=== PATIENT | female | born 2000 | race Caucasian/White ===

== ENCOUNTER → 2022-09-12 | Outpatient (CLI) | payer BC ==
--- NOTE | 2022-09-12 12:29 | US ---
EXAMINATION TYPE: US abdomen complete DATE OF EXAM: 09/12/2022 COMPARISON: NONE CLINICAL INDICATION: Female, 22 years old with history of R10.9 ABD PAIN; Abdominal pain x a couple m onths after eating certain foods. TECHNIQUE: Multiple sonographic images of the abdomen are obtained. FINDINGS: EXAM MEASUREMENTS: Liver Length: 13.8 cm Gallbladder Wall: 0.18 cm CBD: 0.52 cm Spleen: 8.9 cm Right Kidney: 10.9 x 4.4 x 3.7 cm Left Kidney: 9.8 x 4.5 x 4.8 cm INSURANCE ACCOUNT REPRESENTATIVE NOTES: Limited due to overlying bowel gas. Pancreas: Suboptimal visualization of the pancreatic head and tail due to shadowing from bowel gas. Liver: No abnormalities seen. Gallbladder: Appears anechoic. Evidence for sonographic Hughes's sign: No CBD: Portions seen appear wnl Spleen: Appears wnl Right Kidney: No hydronephrosis or masses seen Left Kidney: No hydronephrosis or masses seen Upper IVC: Appears wnl Abd Aorta: Portions seen appear wnl. Iliacs were obscured. IMPRESSION: Suboptimal visualization of the pancreas. Otherwise, unremarkable sonographic examination of the abdo men.
== END | disposition home or self-care (01) ==
LOC: RADUSWWP 07:31
PROVIDERS: ATTEND Internal Medicine Geriatric Medicine
DX: R10.9 Unspecified abdominal pain (principal)
CPT/HCPCS: 76700

== ENCOUNTER 2023-08-29 14:15 | Emergency (ER) | payer BC, OTHER ==
--- NOTE | 2023-08-29 14:35 | ED ---
Arrhythmia/Palpitations HPI - General Source: patient, RN notes reviewed Mode of arrival: ambulatory Limitations: no limitations <Cristiano Farley - Last Filed: 08/29/23 14:33> - General Source: patient, RN notes reviewed <Charu Shane - Last Filed: 08/29/23 16:34> - General Chief Complaint: Arrhythmia/Palpitations Stated Complaint: irregular HR, Shaky/Nausea Time Seen by Provider: 08/29/23 14:20 - History of Present Illness Initial Comments: Quick [id number] female presents emergency department chief complaint of palpitations. Patient states she was active at the time states her heart rate shot up to over 130 she states shortly after it dropped down to 50s she became very lightheaded, sweaty, clammy feeling she states she has had a few episodes like this recently. She denies anything new she states when she was younger she was told her thyroid had some issues but unsure if it was over or underactive she states she is not on medications she denies any fevers no cough or cold symptoms denies any drug use. (Cristiano Farley) Patient is a 23-year-old female presenting with palpitations. States she was active at work when her [employer] ring notified her that her heart rate was increased to 130, and shortly after dropped in the 50s. She was experiencing palpitations and lightheadedness when this occurred. States she has had frequent episodes of this over the last several weeks and has upcoming appointment with her primary care physician. She states she has a history of thyroid issues however is not unsure if it is over or under reactive. She denies , drug use, vomiting. States she drinks 1 cup of coffee daily. Denies URI symptoms or chest pain. Denies history of cardiac issues. (Charu Shane) - Related Data Home Medications Medication Instructions Recorded Confirmed No Known Home Medications 08/29/23 08/29/23 Allergies Allergy/AdvReac Type Severity Reaction Status Date / Time No Known Allergies Allergy Verified 08/29/23 15:35 Review of Systems ROS Other: All systems not noted in ROS Statement are negative. <Cristiano Farley - Last Filed: 08/29/23 14:33> ROS Other: All systems not noted in ROS Statement are negative. <Charu Shane - Last Filed: 08/29/23 16:34> ROS Statement: Those systems with pertinent positive or pertinent negative responses have been documented in the HPI. Past Medical History Past Medical History: Asthma, Thyroid Disorder History of Any Multi-Drug Resistant Organisms: None Reported Past Surgical History: No Surgical Hx Reported Past Psychological History: No Psychological Hx Reported Smoking Status: Never smoker Past Alcohol Use History: Occasional Past Drug Use History: None Reported <Cristiano Farley - Last Filed: 08/29/23 14:33> General Exam Limitations: no limitations <Cristiano Farley - Last Filed: 08/29/23 14:33> ENT exam: Present: normal exam, mucous membranes moist Respiratory exam: Present: normal lung sounds bilaterally. Absent: respiratory distress, wheezes, rales, rhonchi, stridor Cardiovascular Exam: Present: regular rate, normal rhythm, normal heart sounds. Absent: systolic murmur, diastolic murmur, rubs, gallop, clicks GI/Abdominal exam: Present: soft, normal bowel sounds. Absent: distended, tenderness, guarding, rebound, rigid Extremities exam: Present: normal inspection, full ROM, normal capillary refill. Absent: tenderness, pedal edema, joint swelling, calf tenderness Psychiatric exam: Present: normal affect, normal mood Skin exam: Present: warm, dry, intact, normal color. Absent: rash <Charu Shane - Last Filed: 08/29/23 16:34> - General Exam Comments Initial Comments: Visual Physical Exam Vital signs reviewed General: Well-appearing, nontoxic, no acute distress. Head: Normocephalic, atraumatic Eyes: PERRLA, EOMI ENT: Airway patent Chest: Nonlabored breathing Skin: No visual rash, normal skin tone Neuro: Alert and oriented 3 Musculoskeletal: No gross abnormalities (Cristiano Farley) Course Vital Signs 08/29/23 14:17 Temperature 98.4 F Pulse Rate 100 Respiratory 20 Rate Blood Pressure 119/80 O2 Sat by Pulse 100 Oximetry EKG Findings - EKG Comments: EKG Findings:: Sinus rhythm with no ST changes. Vent rate 98 bpm, AZ interval 142, QRS duration 89, QT/QTc 329/384. <Charu Shane - Last Filed: 08/29/23 16:34> Medical Decision Making <Cristiano Farley - Last Filed: 08/29/23 14:33> - Lab Data Result diagrams: 08/29/23 14:45 08/29/23 14:45 <Charu Shane - Last Filed: 08/29/23 16:34> - Medical Decision Making I completed the quick note portion of this chart signed Cristiano Farley PA-C (Cristiano Farley) Was pt. sent in by a medical professional or institution (, PA, CORRESPONDENCE COORDINATOR, urgent care, hospital, or usp...) When possible be specific @ -No Did you speak to anyone other than the patient for history (EMS, parent, family, police, friend...)? What history was obtained from this source @ -No Did you review nursing and triage notes (agree or disagree)? Why? @ -I reviewed and agree with nursing and triage notes Were old charts reviewed (outside hosp., previous admission, EMS record, old EKG, old radiological studies, urgent care reports/EKG's, usp records)? Report findings @ -No old charts were reviewed Differential Diagnosis (chest pain, altered mental status, abdominal pain women, abdominal pain men, vaginal bleeding, weakness, fever, dyspnea, syncope, headache, dizziness, GI bleed, back pain, seizure, CVA, palpatations, mental health, musculoskeletal)? @ -Differential Palpitations Ventricular arrhythmias, atrial arrhythmias, myocardial infarction, anemia, thyrotoxicosis, electrolyte imbalance, hypokalemia, pulmonary embolism, pulmonary disease, drugs, alcohol, anxiety, stress.... This is not meant to be an all-inclusive list. EKG interpreted by me (3pts min.). @ -Normal sinus rhythm with no ST changes X-rays interpreted by me (1pt min.). @ -None done CT interpreted by me (1pt min.). @ -None done U/S interpreted by me (1pt. min.). @ -None done What testing was considered but not performed or refused? (CT, X-rays, U/S, labs)? Why? @ -None What meds were considered but not given or refused? Why? @ -None Did you discuss the management of the patient with other professionals (professionals i.e. , GENE, CORRESPONDENCE COORDINATOR, lab, RT, psych nurse, social and political studies professor, nail specialist, teacher, ground intelligence officer, nurse case manager)? Give summary @ -No Was smoking cessation discussed for >3mins.? @ -No Was critical care preformed (if so, how long)? @ -No Were there social determinants of health that impacted care today? How? (Homeles sness, low income, unemployed, alcoholism, drug addiction, transportation, low edu. Level, literacy, decrease access to med. care, usp, rehab)? @ -No Was there de-escalation of care discussed even if they declined (Discuss DNR or withdrawal of care, Hospice)? DNR status @ -No What co-morbidities impacted this encounter? (DM, HTN, Smoking, COPD, CAD, Cancer, CVA, ARF, Chemo, Hep., AIDS, mental health diagnosis, sleep apnea, morbid obesity)? @ -None Was patient admitted / discharged? Hospital course, mention meds given and route, prescriptions, significant lab abnormalities, going to OR and other pertinent info. @ -Patient was discharged. Patient was seen and examined for palpitations. Vitals and physical examination were unremarkable. Lab work revealed mild dehydration but was otherwise unremarkable. IV fluids were given. Advised patient that there are no signs of emergent illness present today on examination, advised to follow-up with PCP for further evaluation. Return symptoms discussed. Patient discharged in stable condition. Case discussed with Dr. Heaton. Undiagnosed new problem with uncertain prognosis? @ -No Drug Therapy requiring intensive monitoring for toxicity (Heparin, Nitro, Insulin, Cardizem)? @ -No Were any procedures done? @ -No Diagnosis/symptom? @ -Palpitations Acute, or Chronic, or Acute on Chronic? @ -Acute Uncomplicated (without systemic symptoms) or Complicated (systemic symptoms)? @ -Uncomplicated Side effects of treatment? @ -No Exacerbation, Progression, or Severe Exacerbation? @ -No Poses a threat to life or bodily function? How? (Chest pain, [place], [place], pneumonia, PE, COPD, DKA, ARF, appy, cholecystitis, CVA, Diverticulitis, Homicidal, Suici nirmala, threat to staff... and all critical care pts) @ -No (Charu Shane) - Lab Data Lab Results 08/29/23 08/29/23 Range/Units 14:45 14:45 WBC 5.1 (3.8-10.6) k/uL RBC 4.16 (3.80-5.40) m/uL Hgb 12.7 (11.4-16.0) gm/dL Hct 38.1 (34.0-46.0) % MCV 91.6 (80.0-100.0) fL MCH 30.5 (25.0-35.0) pg MCHC 33.3 (31.0-37.0) g/dL RDW 12.8 (11.5-15.5) % Plt Count 273 (150-450) k/uL MPV 8.6 Neutrophils % 54 % Lymphocytes % 33 % Monocytes % 9 % Eosinophils % 1 % Basophils % 1 % Neutrophils # 2.8 (1.3-7.7) k/uL Lymphocytes # 1.7 (1.0-4.8) k/uL Monocytes # 0.4 (0-1.0) k/uL Eosinophils # 0.1 (0-0.7) k/uL Basophils # 0.0 (0-0.2) k/uL Sodium 142 (137-145) mmol/L Potassium 4.2 (3.5-5.1) mmol/L Chloride 111 H (98-107) mmol/L Carbon Dioxide 21 L (22-30) mmol/L Anion Gap 10 mmol/L BUN 13 (7-17) mg/dL Creatinine 1.36 H (0.52-1.04) mg/dL Est GFR (CKD-EPI)AfAm 64 (>60 ml/min/1.73 sqM) Est GFR (CKD-EPI)NonAf 55 (>60 ml/min/1.73 sqM) Glucose 74 (74-99) mg/dL Calcium 9.1 (8.4-10.2) mg/dL Magnesium 2.1 (1.6-2.3) mg/dL Total Bilirubin 0.4 (0.2-1.3) mg/dL AST 22 (14-36) U/L ALT 14 (4-34) U/L Alkaline Phosphatase 56 (38-126) U/L Total Protein 7.3 (6.3-8.2) g/dL Albumin 4.3 (3.5-5.0) g/dL TSH 3.410 (0.465-4.680) mIU/L Disposition <Cristiano Farley - Last Filed: 08/29/23 14:33> Is patient prescribed a controlled substance at d/c from ED?: No Time of Disposition: 16:34 <Charu Shane - Last Filed: 08/29/23 16:34> Clinical Impression: Heart palpitations Disposition: HOME SELF-CARE Condition: Stable Additional Instructions: Please return to the Emergency Department if symptoms worsen or any other concerns. Referrals: Jesika Hernandez MD [Primary Care Provider] - 1-2 days
[2023-08-29 14:53] LABS: Basophils % (A) 1 %; Eosinophils # (A) 0.1 k/uL (0-0.7); Eosinophils % (A) 1 %; HCT 38.1 % (34.0-46.0); HGB 12.7 gm/dL (11.4-16.0); Lymphocytes # (A) 1.7 k/uL (1.0-4.8); Lymphocytes % (A) 33 %; MCH 30.5 pg (25.0-35.0); MCHC 33.3 g/dL (31.0-37.0); MCV 91.6 fL (80.0-100.0); Mean Platelet Volume 8.6; Monocytes # (A) 0.4 k/uL (0-1.0); Monocytes % (A) 9 %; Neutrophils # (A) 2.8 k/uL (1.3-7.7); Neutrophils % (A) 54 %; Platelet Count 273 k/uL (150-450); RBC 4.16 m/uL (3.80-5.40); RDW 12.8 % (11.5-15.5); WBC 5.1 k/uL (3.8-10.6)
[2023-08-29 15:08] LABS: ALT 14 U/L (4-34); AST 22 U/L (14-36); African American GFR (CKD) 64 (>60 ml/min/1.73 sqM); Albumin 4.3 g/dL (3.5-5.0); Alkaline Phosphatase 56 U/L (38-126); Anion Gap 10 mmol/L; Blood Urea Nitrogen 13 mg/dL (7-17); Calcium 9.1 mg/dL (8.4-10.2); Carbon Dioxide 21 mmol/L (22-30); Chloride 111 mmol/L (98-107); Glucose 74 mg/dL (74-99); Magnesium 2.1 mg/dL (1.6-2.3); Non-African American GFR(CKD) 55 (>60 ml/min/1.73 sqM); Potassium 4.2 mmol/L (3.5-5.1); Sodium 142 mmol/L (137-145); Total Bilirubin 0.4 mg/dL (0.2-1.3); Total Protein 7.3 g/dL (6.3-8.2)
[2023-08-29] MEDS: SODIUM CHLORIDE 0.9% 1,000 ML IV STA (15:29)
[2023-08-29 16:59] VITALS: RESP 18
[2023-08-29 17:36] VITALS: BP 107/68; PULSE 97; TEMP 98.1
== END 2023-08-29 17:28 | disposition home or self-care (01) ==
LOC: EC 14:15
DX: R00.2 Palpitations (principal)
CPT/HCPCS: 36415; 80053; 81025; 83735; 84443; 85025; 93005; 96360; 99285

== ENCOUNTER 2024-01-18 05:54 | Emergency (ER) | payer OTHER ==
[2024-01-18 05:57] VITALS: TEMP 97.8
[2024-01-18] MEDS: SODIUM CHLORIDE 0.9% 1,000 ML IV STA (06:39)
--- NOTE | 2024-01-18 06:39 | ED ---
Abdominal Pain HPI - General Chief Complaint: Abdominal Pain Stated Complaint: abd pain Time Seen by Provider: 01/18/24 06:37 Source: patient, RN notes reviewed Mode of arrival: ambulatory Limitations: no limitations - History of Present Illness Initial Comments: 23-year-old female presented to the ER with a chief complaint of right lower quadrant abdominal pain. Patient woke this morning around 4 AM to a sharp right lower quadrant abdominal pain. She states pain comes in waves with no known triggers. She does report lying flat and moving exacerbates pain. Sitting up at a 90 degree angle improves her pain. She denies any nausea, vomiting, feve rs, chills, constipation or diarrhea. Denies any urinary complaints or vaginal bleeding. Patient denies any chance of . No other complaints. Patient has not taken anything for symptoms at this time. - Related Data Home Medications Medication Instructions Recorded Confirmed No Known Home Medications 08/29/23 08/29/23 Allergies Allergy/AdvReac Type Severity Reaction Status Date / Time No Known Allergies Allergy Verified 01/18/24 05:56 Review of Systems ROS Statement: Those systems with pertinent positive or pertinent negative responses have been documented in the HPI. ROS Other: All systems not noted in ROS Statement are negative. Past Medical History Past Medical History: Asthma, Thyroid Disorder History of Any Multi-Drug Resistant Organisms: None Reported Past Surgical History: No Surgical Hx Reported Past Psychological History: No Psychological Hx Reported Smoking Status: Never smoker Past Alcohol Use History: Occasional Past Drug Use History: None Reported General Exam Limitations: no limitations General appearance: alert, in no apparent distress Respiratory exam: Present: normal lung sounds bilaterally. Absent: respiratory distress, wheezes, rales, rhonchi, stridor Cardiovascular Exam: Present: regular rate, normal rhythm, normal heart sounds. Absent: systolic murmur, diastolic murmur, rubs, gallop, clicks GI/Abdominal exam: Present: soft, tenderness (RLQ. Rovings sign +), normal bowel sounds Extremities exam: Present: normal inspection, full ROM, normal capillary refill. Absent: tenderness, pedal edema, joint swelling, calf tenderness Neurological exam: Present: alert, oriented X3, CN II-XII intact Skin exam: Present: warm, dry, intact, normal color. Absent: rash Course Vital Signs 01/18/24 01/18/24 01/18/24 05:55 06:05 07:03 Temperature 97.8 F Pulse Rate 81 85 78 Respiratory 16 18 18 Rate Blood Pressure 129/86 117/79 115/82 O2 Sat by Pulse 97 100 100 Oximetry 01/18/24 01/18/24 10:00 11:18 Temperature Pulse Rate 66 63 Respiratory 16 16 Rate Blood Pressure 109/70 125/73 O2 Sat by Pulse 100 100 Oximetry Medical Decision Making - Medical Decision Making Was pt. sent in by a medical professional or institution (, PA, CARPENTER'S ASSISTANT, urgent care, hospital, or long-term...) When possible be specific @ -No Did you speak to anyone other than the patient for history (EMS, parent, family, police, friend...)? What history was obtained from this source @ -No Did you review nursing and triage notes (agree or disagree)? Why? @ -I reviewed and agree with nursing and triage notes Were old charts reviewed (outside hosp., previous admission, EMS record, old EKG, old radiological studies, urgent care reports/EKG's, long-term records)? Report findings @ -No old charts were reviewed Differential Diagnosis (chest pain, altered mental status, abdominal pain women, abdominal pain men, vaginal bleeding, weakness, fever, dyspnea, syncope, headache, dizziness, GI bleed, back pain, seizure, CVA, palpatations, mental health, musculoskeletal)? @ -Differential Abdominal Pain Women: Appendicitis, Cholecystitis, diverticulosis, ischemic bowel, pancreatitis, hepatitis, UTI, gastroenteritis, AAA, incarcerated hernia, bowel obstruction, constipation, inflammatory bowel, hepatitis, peptic ulcer disease, splenic infarction, perforated viscus, vulviti s, ovarian torsion, PID, kidney stone, placenta abruption, this is not meant to be an all-inclusive list EKG interpreted by me (3pts min.). @ -None X-rays interpreted by me (1pt min.). @ -None done CT interpreted by me (1pt min.). @ -CT abdomen pelvis negative for acute intra-abdominal process. U/S interpreted by me (1pt. min.). @ -None done What testing was considered but not performed or refused? (CT, X-rays, U/S, labs)? Why? @ -None What meds were considered but not given or refused? Why? @ -None Did you discuss the management of the patient with other professionals (professionals i.e. , PA, CARPENTER'S ASSISTANT, lab, RT, psych nurse, social media strategist, turn out worker, teacher, environmental officer, patient case coordinator)? Give summary @ -No Was smoking cessation discussed for >3mins.? @ -No Was critical care preformed (if so, how long)? @ -No Were there social determinants of health that impacted care today? How? (H omelessness, low income, unemployed, alcoholism, drug addiction, transportation, low edu. Level, literacy, decrease access to med. care, senior living, rehab)? @ -No Was there de-escalation of care discussed even if they declined (Discuss DNR or withdrawal of care, Hospice)? DNR status @ -No What co-morbidities impacted this encounter? (DM, HTN, Smoking, COPD, CAD, Cancer, CVA, ARF, Chemo, Hep., AIDS, mental health diagnosis, sleep apnea, morbid obesity)? @ -None Was patient admitted / discharged? Hospital course, mention meds given and route, prescriptions, significant lab abnormalities, going to OR and other pertinent info. @ -Discharge. 23-year-old female presented to ER with a chief complaint of right lower quadrant abdominal pain. History and physical exam completed. Vitals within normal limits. Patient in no signs of distress and nontoxic- appearing. Mild tenderness to palpation of right lower quadrant. No rebound or guarding. Normal bowel sounds. Laboratory studies obtained unremarkable. Urinalysis negative for evidence of infection. Urine hCG negative. CT abdomen pelvis negative. Patient received IV fluids, Zofran and Toradol for symptom control in the ER. Upon reevaluation, patient resting comfortably in exam room in no signs of acute distress. Patient is eager for discharge. Results discussed with patient, all questions answered. I advised close follow-up with PCP. Return parameters discussed. Patient discharged in stable condition.Patient verbally expressed understanding and agreement with care plan. Case discussed with ED attending, Altagracia Alberto. Undiagnosed new problem with uncertain prognosis? @ -No Drug Therapy requiring intensive monitoring for toxicity (Heparin, Nitro, Insulin, Cardizem)? @ -No Were any procedures done? @ -No Diagnosis/symptom? @ -Abdominal pain Acute, or Chronic, or Acute on Chronic? @ -Acute Uncomplicated (without systemic symptoms) or Complicated (systemic symptoms)? @ -Uncomplicated Side effects of treatment? @ -No Exacerbation, Progression, or Severe Exacerbation? @ -No Poses a threat to life or bodily function? How? (Chest pain, [place], [place], pneumonia, PE, COPD, DKA, ARF, appy, cholecystitis, CVA, Diverticulitis, Homicidal, Suicidal, threat to staff... and all critical care pts) @ -No - Lab Data Result diagrams: 01/18/24 06:20 01/18/24 06:20 Lab Results 01/18/24 01/18/24 01/18/24 Range/Units 06:20 06:20 06:20 WBC 4.7 (3.8-10.6) k/uL RBC 4.35 (3.80-5.40) m/uL Hgb 13.2 (11.4-16.0) gm/dL Hct 39.3 (34.0-46.0) % MCV 90.4 (80.0-100.0) fL MCH 30.4 (25.0-35.0) pg MCHC 33.7 (31.0-37.0) g/dL RDW 12.7 (11.5-15.5) % Plt Count 291 (150-450) k/uL MPV 7.5 Neutrophils % 48 % Lymphocytes % 38 % Monocytes % 8 % Eosinophils % 2 % Basophils % 0 % Neutrophils # 2.2 (1.3-7.7) k/uL Lymphocytes # 1.8 (1.0-4.8) k/uL Monocytes # 0.4 (0-1.0) k/uL Eosinophils # 0.1 (0-0.7) k/uL Basophils # 0.0 (0-0.2) k/uL Sodium 139 (137-145) mmol/L Potassium 4.4 (3.5-5.1) mmol/L Chloride 109 H (98-107) mmol/L Carbon Dioxide 24 (22-30) mmol/L Anion Gap 6 mmol/L BUN 18 H (7-17) mg/dL Creatinine 0.74 (0.52-1.04) mg/dL Est GFR (CKD-EPI)AfAm >90 (>60 ml/min/1.73 sqM) Est GFR (CKD-EPI)NonAf >90 (>60 ml/min/1.73 sqM) Glucose 98 (74-99) mg/dL Plasma Lactic Acid Misael 1.0 (0.7-2.0) mmol/L Calcium 9.5 (8.4-10.2) mg/dL Total Bilirubin 0.3 (0.2-1.3) mg/dL AST 27 (14-36) U/L ALT 20 (4-34) U/L Alkaline Phosphatase 55 (38-126) U/L Total Protein 7.0 (6.3-8.2) g/dL Albumin 4.2 (3.5-5.0) g/dL Amylase 58 (30-110) U/L Lipase 81 (23-300) U/L Urine Color Urine Appearance (Clear) Urine pH (5.0-8.0) Ur Specific Mohler (1.001-1.035) Urine Protein (Negative) Urine Glucose (UA) (Negative) Urine Ketones (Negative) Urine Blood (Negative) Urine Nitrite (Negative) Urine Bilirubin (Negative) Urine Urobilinogen (<2.0) mg/dL Ur Leukocyte Esterase (Negative) Urine HCG, Qual (Not Detectd) 01/18/24 01/18/24 Range/Units 07:03 07:03 WBC (3.8-10.6) k/uL RBC (3.80-5.40) m/uL Hgb (11.4-16.0) gm/dL Hct (34.0-46.0) % MCV (80.0-100.0) fL MCH (25.0-35.0) pg MCHC (31.0-37.0) g/dL RDW (11.5-15.5) % Plt Count (150-450) k/uL MPV Neutrophils % % Lymphocytes % % Monocytes % % Eosinophils % % Basophils % % Neutrophils # (1.3-7.7) k/uL Lymphocytes # (1.0-4.8) k/uL Monocytes # (0-1.0) k/uL Eosinophils # (0-0.7) k/uL Basophils # (0-0.2) k/uL Sodium (137-145) mmol/L Potassium (3.5-5.1) mmol/L Chloride (98-107) mmol/L Carbon Dioxide (22-30) mmol/L Anion Gap mmol/L BUN (7-17) mg/dL Creatinine (0.52-1.04) mg/dL Est GFR (CKD-EPI)AfAm (>60 ml/min/1.73 sqM) Est GFR (CKD-EPI)NonAf (>60 ml/min/1.73 sqM) Glucose (74-99) mg/dL Plasma Lactic Acid Misael (0.7-2.0) mmol/L Calcium (8.4-10.2) mg/dL Total Bilirubin (0.2-1.3) mg/dL AST (14-36) U/L ALT (4-34) U/L Alkaline Phosphatase (38-126) U/L Total Protein (6.3-8.2) g/dL Albumin (3.5-5.0) g/dL Amylase (30-110) U/L Lipase (23-300) U/L Urine Color Colorless Urine Appearance Clear (Clear) Urine pH 5.5 (5.0-8.0) Ur Specific Mohler 1.020 (1.001-1.035) Urine Protein Negative (Negative) Urine Glucose (UA) Negative (Negative) Urine Ketones Negative (Negative) Urine Blood Negative (Negative) Urine Nitrite Negative (Negative) Urine Bilirubin Negative (Negative) Urine Urobilinogen <2.0 (<2.0) mg/dL Ur Leukocyte Esterase Negative (Negative) Urine HCG, Qual Not Detected (Not Detectd) - Radiology Data Radiology results: report reviewed, image reviewed Disposition Clinical Impression: Abdominal pain Disposition: HOME SELF-CARE Condition: Stable Instructions (If sedation given, give patient instructions): Abdominal Pain (ED) Additional Instructions: Follow-up with PCP. Return to the ER for any new or worsening concerns. Is patient prescribed a controlled substance at d/c from ED?: No Referrals: Jesika Hernandez MD [Primary Care Provider] - 1-2 days Time of Disposition: 11:09
[2024-01-18] MEDS: KETOROLAC 15 MG/ML 1 ML VIAL IVP STA (06:42)
[2024-01-18] MEDS: ONDANSETRON 4 MG/2 ML VIAL IVP STA (06:46)
[2024-01-18 06:49] LABS: Basophils % (A) 0 %; Eosinophils # (A) 0.1 k/uL (0-0.7); Eosinophils % (A) 2 %; HCT 39.3 % (34.0-46.0); HGB 13.2 gm/dL (11.4-16.0); Lymphocytes # (A) 1.8 k/uL (1.0-4.8); Lymphocytes % (A) 38 %; MCH 30.4 pg (25.0-35.0); MCHC 33.7 g/dL (31.0-37.0); MCV 90.4 fL (80.0-100.0); Mean Platelet Volume 7.5; Monocytes # (A) 0.4 k/uL (0-1.0); Monocytes % (A) 8 %; Neutrophils # (A) 2.2 k/uL (1.3-7.7); Neutrophils % (A) 48 %; Platelet Count 291 k/uL (150-450); RBC 4.35 m/uL (3.80-5.40); RDW 12.7 % (11.5-15.5); WBC 4.7 k/uL (3.8-10.6)
[2024-01-18 06:54] LABS: ALT 20 U/L (4-34); AST 27 U/L (14-36); African American GFR (CKD) >90 (>60 ml/min/1.73 sqM); Albumin 4.2 g/dL (3.5-5.0); Alkaline Phosphatase 55 U/L (38-126); Amylase 58 U/L (30-110); Anion Gap 6 mmol/L; Blood Urea Nitrogen 18 mg/dL (7-17); Calcium 9.5 mg/dL (8.4-10.2); Carbon Dioxide 24 mmol/L (22-30); Chloride 109 mmol/L (98-107); Glucose 98 mg/dL (74-99); Lipase 81 U/L (23-300); Non-African American GFR(CKD) >90 (>60 ml/min/1.73 sqM); Potassium 4.4 mmol/L (3.5-5.1); Sodium 139 mmol/L (137-145); Total Bilirubin 0.3 mg/dL (0.2-1.3)
[2024-01-18 08:18] LABS: Appearance,Urine Clear (Clear); Bilirubin,Urine Negative (Negative); Blood,Urine Negative (Negative); Color,Urine Colorless; Glucose,Urine (UA) Negative (Negative); Ketones,Urine Negative (Negative); Leukocyte Esterase,Urine Negative (Negative); Nitrite,Urine Negative (Negative); PH, Urine 5.5 (5.0-8.0); Protein,Urine Negative (Negative); Urobilinogen,Urine <2.0 mg/dL (<2.0)
--- NOTE | 2024-01-18 10:35 | CT ---
EXAMINATION TYPE: CT abdomen pelvis w con DATE OF EXAM: 01/18/2024 COMPARISON: None INDICATION: rlq pain DLP: 704.7 mGycm, Automated exposure control for dose reduction was used. CONTRAST: 100 mL of Isovue 300. Study performed without Oral Contrast TECHNIQUE: Axial images were obtained from above the diaphragm to the pubic rami in the axial plane a t 5 mm thick sections. Reconstructed images are reviewed on the computer in the coronal plane. FINDINGS: Limited CT sections are obtained the lung bases. The lung bases are clear. CT ABDOMEN: Liver: Normal Spleen: Normal Pancreas: Normal Adrenal glands: The adrenal glands are normal. Gallbladder: Minimal fluid adjacent to the gallbladder is not excluded. Clinical consideration for ch olecystitis. Ultrasound could be performed. Kidneys: No masses are evident. No hydronephrosis is present. No cysts are present. Delayed images were obtained through the kidneys, which remain unremarkable. Aorta: Normal Inferior vena cava: Normal. CT PELVIS: Loops of bowel within the abdomen and pelvis are normal. This study is without oral contrast limi ting evaluation. Appendix: Normal as visualized. Urinary bladder: Normal. Genitourinary structures: Uterus is normal. Adnexal regions appear normal. Follicles are on the right and left ovaries Osseous structures: No suspicious lytic or sclerotic lesions. IMPRESSION: 1. No suspicious abnormality to account for right lower quadrant pain.
[2024-01-18 10:46] VITALS: RESP 16
[2024-01-18 11:19] VITALS: BP 125/73; PULSE 63
== END 2024-01-18 11:19 | disposition home or self-care (01) ==
LOC: EC 05:54
DX: R10.31 Right lower quadrant pain (principal)
CPT/HCPCS: 36415; 80053; 82150; 83605; 83690; 85025; 81003; 81025; 74177; 99284; 96374; 96375; 96361; J2405; J1885; Q9967

== ENCOUNTER → 2024-01-29 | Outpatient (CLI) | payer OTHER ==
--- NOTE | 2024-01-29 11:55 | US ---
EXAMINATION TYPE: US abdomen complete DATE OF EXAM: 01/29/2024 COMPARISON: US 09/12/2022 CT 01/18/2024 CLINICAL INDICATION: Female, 23 years old with history of R10.11 RIGHT UPPER QUADRANT PAIN; Intermitt ent; Patient denies any other signs, symptoms, or relevant history TECHNIQUE: Multiple sonographic images of the abdomen are obtained. FINDINGS: EXAM MEASUREMENTS: Liver Length: 14.8 cm Gallbladder Wall: 0.2 cm CBD: 0.6 cm Spleen: 8.2 cm Right Kidney: 10.5 x 4.0 x 4.8 cm Left Kidney: 10.0 x 5.1 x 4.3 cm MEDICAL TYPIST NOTES: Pancreas: Obscured by bowel gas Liver: wnl Gallbladder: wnl Evidence for sonographic Hughes's sign: No CBD: wnl Spleen: wnl Right Kidney: wnl Left Kidney: wnl Upper IVC: wnl Abd Aorta: wnl The liver is homogenous. The intrahepatic portion of the IVC and proximal abdominal aorta are within normal limits. There is no evidence of cholelithiasis. Common bile duct is unremarkable. The visu alized portions of the pancreas are homogenous. The spleen is unremarkable. Kidneys are symmetric a nd free of hydronephrosis. No renal lesions are seen. IMPRESSION: No evidence of gallstones. The CBD does measure at the upper limits of normal at 6 mm. This is simila r to prior exam.
== END | disposition home or self-care (01) ==
LOC: RADUSWWP 07:44
PROVIDERS: ATTEND Internal Medicine Geriatric Medicine
DX: R10.11 Right upper quadrant pain (principal)
CPT/HCPCS: 76700

== ENCOUNTER 2024-03-15 05:47 | Day surgery (SDC) | payer OTHER, BC ==
[2024-03-15] MEDS: IV FLUID CONTINUATION 500 ML IV ONE (06:27)
[2024-03-15] MEDS: SODIUM CHLORIDE 0.9% 1,000 ML IV SCH (06:28)
[2024-03-15 06:39] VITALS: BP 108/71; PULSE 71; RESP 16; TEMP 97.6
--- NOTE | 2024-03-15 13:44 | P.EPPROC ---
- EP Procedure Note Electrophysiology Procedure Note: Diagnosis: Recurrent presyncope Twelve-lead EKG shows sinus rhythm normal MN interval normal ST segments normal QT interval No delta waves, no epsilon waves normal ST segments in the precordial leads Tilt table test per protocol Baseline blood pressure 104/65 mmHg, baseline heart rate 67 beats minute Patient was tilted upright at an angle of 70 degrees per protocol there was an increase in the heart rate within the first 10 minutes up to 205 beats a minute and remained between 100 215 beats a minute throughout the tilt. She felt tired. She was yawning through most of the procedure There was no syncope noted When she was laid supine heart rate improved to the low 90s Impression Normal twelve-lead EKG Mild orthostatic intolerance without any secondary neurocardiogenic phenomena or presyncope
== END 2024-03-15 08:34 | disposition home or self-care (01) ==
LOC: CATHEP 05:47
PROVIDERS: ATTEND Internal Medicine Clinical Cardiac Electrophysiology
CPT/HCPCS: 81025; 93660